=== PATIENT | male | born 1965 | race African-American/Black ===

== ENCOUNTER 2017-04-17 19:20 | Observation (INO) | payer MEDICARE ==
[~2017-04-17] VITALS: Ht 190.5 cm; Wt 95.3 kg
[2017-04-17 20:06] LABS: EOS % 1 % (0-3); HEMATOCRIT 43.7 % (39.0-53.0); HEMOGLOBIN 14.4 g/dL (13.0-17.5); LYMPH % 39 % (24-48); MEAN CORPUSCULAR HEMOGLOBIN 31 pg (25-35); MEAN CORPUSCULAR HGB CONC 33 g/dL (31-37); MEAN CORPUSCULAR VOLUME 94 fL (79-100); MONO % 8 % (0-9); NEUT % 51 % (31-73); PLATELET COUNT 236 x10^3/uL (140-400); RED BLOOD COUNT 4.66 x10^6/uL (4.30-5.70); RED CELL DISTRIBUTION WIDTH 13.4 % (11.5-14.5); WHITE BLOOD COUNT 4.6 x10^3/uL (4.0-11.0)
[2017-04-17 20:07] LABS: BASO % 1 % (0-3); LYMPH # 1.8 x10^3/uL (1.0-4.8)
[2017-04-17 20:14] LABS: BARBITURATES NEG (NEG); BENZODIAZEPINES NEG (NEG); CANNABINOIDS NEG (NEG); COCAINE NEG (NEG); METHADONE NEG (NEG); OPIATES NEG (NEG); PHENCYCLIDINE NEG (NEG)
[2017-04-17 20:16] LABS: CALCIUM 9.5 mg/dL (8.5-10.1); CREATININE 1.2 mg/dL (0.7-1.3); GFR 63.6; POTASSIUM 3.9 mmol/L (3.5-5.1)
[2017-04-17 20:20] LABS: ETHANOL < 10 mg/dL (0-10)
[2017-04-18] MEDS ORDERED: LORazepam 1 MG TABLET PO ONE
--- NOTE | 2017-04-18 01:06 | PHYS DOC ---
Past Medical History Past Medical History: Depression, Hypertension, Schizophrenia Past Surgical History: No Surgical History Additional Information: 1/2 PPD Alcohol Use: Occasionally Additional Information: 2 BEERS 4HRS AGO Drug Use: None Adult General Chief Complaint Chief Complaint: SUICDAL IDEATION HPI HPI Patient is a 52 year old male who presents with suicidal ideation. The patient states that he has history of depression & schizophrenia. He states he has been off of his depression medications and wants to kill himself. He plans to run out into heavy traffic and wants to . He states in the past he took the medication overdose and ended up intubated in the ICU. Denies any medical complaints at this time. States he is a daily drinker. He had 4 beers today. Denies drug use. Review of Systems Review of Systems Constitutional: Denies fever or chills HENT: Denies nasal congestion or sore throat Respiratory: Denies cough or shortness of breath Cardiovascular: Denies chest pain GI: Denies abdominal pain, nausea, vomiting Musculoskeletal: Denies back pain or joint pain Integument: Denies rash or skin lesions Neurologic: Denies headache, focal weakness or sensory changes Psychiatric: Reports suicidal ideation and depression Allergies Allergies Allergies Coded Allergies Type Severity Reaction Last Updated Verified Iodine and Iodide Containing Produc Allergy Intermediate 04/17/17 Yes shellfish derived Allergy Intermediate 04/17/17 Yes Physical Exam Physical Exam Constitutional: Well developed, well nourished, no acute distress, non-toxic appearance. HENT: Normocephalic, atraumatic, bilateral external ears normal, oropharynx moist, nose normal. Eyes: conjunctiva normal, no discharge. Cardiovascular: RRR, no murmurs, no edema. Lungs & Thorax: LCTAB, no wheezing, no respiratory distress. Abdomen: soft, nontender, nondistended. Skin: Warm, dry, no erythema, no rash. Back: No tenderness. Extremities: No tenderness, no edema. Neurologic: Alert and oriented X 3, no focal deficits noted. Psychologic: Flat affect Current Patient Data Vital Signs Vital Signs Date Time Temp Pulse Resp B/P (MAP) Pulse Ox O2 Delivery O2 Flow Rate FiO2 04/17/17 21:40 70 16 134/76 (95) 98 Room Air 04/17/17 19:40 98.6 98.6 Lab Values Laboratory Tests Test 04/17/17 19:35 04/17/17 19:52 White Blood Count 4.6 x10^3/uL (4.0-11.0) Red Blood Count 4.66 x10^6/uL (4.30-5.70) Hemoglobin 14.4 g/dL (13.0-17.5) Hematocrit 43.7 % (39.0-53.0) Mean Corpuscular Volume 94 fL (79-100) Mean Corpuscular Hemoglobin 31 pg (25-35) Mean Corpuscular Hemoglobin Concent 33 g/dL (31-37) Red Cell Distribution Width 13.4 % (11.5-14.5) Platelet Count 236 x10^3/uL (140-400) Neutrophils (%) (Auto) 51 % (31-73) Lymphocytes (%) (Auto) 39 % (24-48) Monocytes (%) (Auto) 8 % (0-9) Eosinophils (%) (Auto) 1 % (0-3) Basophils (%) (Auto) 1 % (0-3) Neutrophils # (Auto) 2.4 x10^3uL (1.8-7.7) Lymphocytes # (Auto) 1.8 x10^3/uL (1.0-4.8) Monocytes # (Auto) 0.4 x10^3/uL (0.0-1.1) Eosinophils # (Auto) 0.1 x10^3/uL (0.0-0.7) Basophils # (Auto) 0.0 x10^3/uL (0.0-0.2) Sodium Level 143 mmol/L (136-145) Potassium Level 3.9 mmol/L (3.5-5.1) Chloride Level 105 mmol/L (98-107) Carbon Dioxide Level 29 mmol/L (21-32) Anion Gap 9 (6-14) Blood Urea Nitrogen 12 mg/dL (8-26) Creatinine 1.2 mg/dL (0.7-1.3) Estimated GFR (Cockcroft-Gault) 63.6 Glucose Level 115 mg/dL (70-99) H Calcium Level 9.5 mg/dL (8.5-10.1) Salicylates Level < 2.8 mg/dL (2.8-20.0) L Salicylate Last Dose Date Salicylate Last Dose Time Acetaminophen Level < 2 mcg/ml (10-30) L Acetaminophen Last Dose Date Acetaminophen Last Dose Time Ethyl Alcohol Level < 10 mg/dL (0-10) Urine Opiates Screen Neg (NEG) Urine Methadone Screen Neg (NEG) Urine Barbiturates Neg (NEG) Urine Phencyclidine Screen Neg (NEG) Urine Amphetamine/Methamphetamine Neg (NEG) Urine Benzodiazepines Screen Neg (NEG) Urine Cocaine Screen Neg (NEG) Urine Cannabinoids Screen Neg (NEG) Urine Ethyl Alcohol Pos (NEG) Laboratory Tests 04/17/17 19:35 Laboratory Tests 04/17/17 19:35 EKG EKG [] Radiology/Procedures Radiology/Procedures [] Course & Med Decision Making Course & Med Decision Making Pertinent Labs and Imaging studies reviewed. (See chart for details) The patient presents with suicidal ideation. No medical complaints. No significant findings on exam. Obtained labs and consulted Sandy from the PAT team. She was unable to find placement but agrees that he requires inpatient care. We'll admit to the hospital here pending psychiatric admission. Discussed with Dr. Flores who agrees to admit to observation status. The patient is being admitted in stable condition. [] Dragon Disclaimer Dragon Disclaimer This electronic medical record was generated, in whole or in part, using a voice recognition dictation system. Departure Departure Impression: Primary Impression: Suicidal ideation Disposition: ADMITTED INPATIENT Condition: STABLE Referrals: NO PCP (PCP) EDIN ONTIVEROS MD Apr 18, 2017 01:05
[2017-04-18 07:49] VITALS: BP 144/91
[2017-04-18] MEDS: ALPRAZolam 0.5 MG TABLET PO PRN ×2 (08:34→18:37)
[2017-04-18 10:58] VITALS: BP 110/80
[2017-04-18 14:55] VITALS: BP 145/92
[2017-04-18 19:00] VITALS: BP 135/97
--- NOTE | 2017-04-18 19:31 | HP ---
ADMIT DATE: 04/18/2017 CHIEF COMPLAINT: Suicidal ideation. HISTORY OF PRESENT ILLNESS: This is a 52-year-old -[place] gentleman with depression (question bipolar) who presented to the Emergency Room stating he had ideas of committing suicide. His plan was to walk out into traffic. He apparently has had similar issues in the past and actually is on multiple psych medications, which he stopped in September when he started on a binge drink, which apparently has come to hold just now. He relates that he is drinking off and on and has been off his meds in the past as well. He is originally from [place] and came to [place] on a spur and now feels he needs to get stabilized mentally before he goes back to [place]. PAST MEDICAL HISTORY: None. FAMILY HISTORY: No psych disorders known. SOCIAL HISTORY: States he is living with his girlfriend of 20 years in [place], no home here, has been drinking heavily, but had only two beers yesterday. Denies any illicit drug use. Smokes about half a pack. ALLERGIES: IODINE, SHELLFISH, AND FISH. HOME MEDICATIONS: Reconciled with [facility]. REVIEW OF SYSTEMS: Physically, he is doing well. Denies any problems. Psychiatrically endorses suicidal ideation with plan. PHYSICAL EXAMINATION: VITAL SIGNS: From today show a blood pressure of 110/80, heart rate of 59, respiratory rate at 18. He is afebrile. GENERAL: This is a 52-year-old -[place] gentleman, a well-nourished, well-developed in no acute distress. HEENT: Shows no scleral icterus. NECK: Supple. LUNGS: Clear. HEART: Has regular rate and rhythm. ABDOMEN: Has positive bowel sounds, soft, nontender. EXTREMITIES: Show no edema. SKIN: Warm, soft and dry without any rash. LABORATORY DATA: CBC with a WBC of 4.6, hemoglobin 14.4, platelets of 236. BUN and creatinine of 12 and 1.2. Normal electrolytes. Toxicology positive only for blood alcohol less than 10. ASSESSMENT AND PLAN: The patient is a 52-year-old gentleman with suspected bipolar disorder, presented to the hospital voicing suicidal ideation. He answers all the questions as if has heard them many times before. He does have a flat affect, speaking to him. A PET team has seen him and recommended inpatient psych. Unfortunately, we will be unable to place him without insurance and out of state. He will therefore remain here until he is stable enough to go back to [place]. We will restart his medications including Seroquel at night, Klonopin 3 times a day as well as Zoloft, which will start at a quarter dose of his typical 100 mg and titrate upwards. For prophylaxis, he will be placed on Lovenox. Further labs are not indicated at this time. He will remain with 1:1 sitter for suicide precaution. RADHA DICKSON MD DR: UR/nts JOB#: [id number] / [id number] MEKA
[2017-04-18] MEDS: clonazePAM 0.5 MG TABLET PO SCH (21:07)
[2017-04-18] MEDS: QUEtiapine 300 MG TAB.ER.24H. PO SCH (21:07)
[2017-04-18] MEDS: ENOXAPARIN 40 MG/0.4 ML SYRINGE. SQ SCH (21:08)
[2017-04-18 22:45] VITALS: BP 141/94
[2017-04-19 02:37] VITALS: BP 137/89
[2017-04-19 07:00] VITALS: BP 133/87
--- NOTE | 2017-04-19 08:59 | PDOC ---
PROGRESS NOTES Chief Complaint Chief Complaint suicidal ideation, hearing voices bipolar disorder, w/ psychosis, was off meds w. depression possible homeless History of Present Illness History of Present Illness feels "yucky" restarting his meds good appetite, spirits seem better today, Vitals Vitals Vital Signs Date Time Temp Pulse Resp B/P (MAP) Pulse Ox O2 Delivery O2 Flow Rate FiO2 04/19/17 07:00 96.9 66 20 133/87 (102) Room Air 96.9 04/19/17 02:37 98 Physical Exam General: Alert, Cooperative, No acute distress Heart: No murmurs, Gallops Lungs: Crackles Abdomen: No hepatosplenomegaly Extremities: No edema Skin: No significant lesion Review of Systems Review of Systems lethargy, some nausea less voices, does not mention this affect seems brighter Assessment and Plan Assessmemt and Plan Problems Medical Problems: (1) Suicidal ideation Status: Acute Problems: Comment Review of Relevant I have reviewed the following items jordin (where applicable) has been applied. Labs Laboratory Tests Test 04/17/17 19:35 04/17/17 19:52 White Blood Count 4.6 x10^3/uL (4.0-11.0) Red Blood Count 4.66 x10^6/uL (4.30-5.70) Hemoglobin 14.4 g/dL (13.0-17.5) Hematocrit 43.7 % (39.0-53.0) Mean Corpuscular Volume 94 fL (79-100) Mean Corpuscular Hemoglobin 31 pg (25-35) Mean Corpuscular Hemoglobin Concent 33 g/dL (31-37) Red Cell Distribution Width 13.4 % (11.5-14.5) Platelet Count 236 x10^3/uL (140-400) Neutrophils (%) (Auto) 51 % (31-73) Lymphocytes (%) (Auto) 39 % (24-48) Monocytes (%) (Auto) 8 % (0-9) Eosinophils (%) (Auto) 1 % (0-3) Basophils (%) (Auto) 1 % (0-3) Neutrophils # (Auto) 2.4 x10^3uL (1.8-7.7) Lymphocytes # (Auto) 1.8 x10^3/uL (1.0-4.8) Monocytes # (Auto) 0.4 x10^3/uL (0.0-1.1) Eosinophils # (Auto) 0.1 x10^3/uL (0.0-0.7) Basophils # (Auto) 0.0 x10^3/uL (0.0-0.2) Sodium Level 143 mmol/L (136-145) Potassium Level 3.9 mmol/L (3.5-5.1) Chloride Level 105 mmol/L (98-107) Carbon Dioxide Level 29 mmol/L (21-32) Anion Gap 9 (6-14) Blood Urea Nitrogen 12 mg/dL (8-26) Creatinine 1.2 mg/dL (0.7-1.3) Estimated GFR (Cockcroft-Gault) 63.6 Glucose Level 115 mg/dL (70-99) Calcium Level 9.5 mg/dL (8.5-10.1) Salicylates Level < 2.8 mg/dL (2.8-20.0) Salicylate Last Dose Date Salicylate Last Dose Time Acetaminophen Level < 2 mcg/ml (10-30) Acetaminophen Last Dose Date Acetaminophen Last Dose Time Ethyl Alcohol Level < 10 mg/dL (0-10) Urine Opiates Screen Neg (NEG) Urine Methadone Screen Neg (NEG) Urine Barbiturates Neg (NEG) Urine Phencyclidine Screen Neg (NEG) Urine Amphetamine/Methamphetamine Neg (NEG) Urine Benzodiazepines Screen Neg (NEG) Urine Cocaine Screen Neg (NEG) Urine Cannabinoids Screen Neg (NEG) Urine Ethyl Alcohol Pos (NEG) Medications Current Medications Lorazepam (Ativan) 1 mg 1X ONCE PO Last administered on 04/18/17 00:00; Start 04/18/17 at 00:00; Stop 04/18/17 at 00:01; Status DC Alprazolam (Xanax) 0.5 mg PRN Q8HRS PRN PO ANXIETY / AGITATION Last administered on 04/18/17 18:37; Start 04/18/17 at 07:15 Quetiapine Fumarate (SEROquel XR) 300 mg QHS PO Last administered on 04/18/17 21:07; Start 04/18/17 at 21:00 Clonazepam (KlonoPIN) 0.5 mg TID PO Last administered on 04/18/17 21:07; Start 04/18/17 at 21:00 Sertraline HCl (Zoloft) 25 mg DAILY PO ; Start 04/19/17 at 09:00 Enoxaparin Sodium (Lovenox 40mg Syringe) 40 mg Q24H SQ Last administered on t 21:08; Start 04/18/17 at 21:00 Vitals/I & O Vital Sign - Last 24 Hours 04/18/17 04/18/17 04/18/17 04/18/17 10:58 14:55 19:00 19:56 Temp 98.0 98.1 98.4 98.0 98.1 98.4 Pulse 59 71 67 Resp 18 18 18 B/P (MAP) 110/80 (90) 145/92 (109) 135/97 (110) Pulse Ox 94 94 96 O2 Delivery Room Air Room Air Room Air Room Air 04/18/17 04/19/17 04/19/17 22:45 02:37 07:00 Temp 96.6 97.6 96.9 96.6 97.6 96.9 Pulse 60 81 66 Resp 20 20 20 B/P (MAP) 141/94 (110) 137/89 (105) 133/87 (102) Pulse Ox 98 98 O2 Delivery Room Air Room Air Room Air Intake and Output 04/18/17 04/18/17 04/19/17 15:00 23:00 07:00 Intake Total 750 ml 350 ml 460 ml Output Total 500 ml 450 ml 0 ml Balance 250 ml -100 ml 460 ml HETAL DIAZ MD Apr 19, 2017 08:59
[2017-04-19] MEDS: SERTRALINE 25 MG TABLET. PO SCH (09:39)
[2017-04-19] MEDS: clonazePAM 0.5 MG TABLET PO SCH ×3 (09:39→21:05)
[2017-04-19 11:00] VITALS: BP 133/74
[2017-04-19 15:00] VITALS: BP 123/91
[2017-04-19 19:00] VITALS: BP 123/88
[2017-04-19] MEDS: ENOXAPARIN 40 MG/0.4 ML SYRINGE. SQ SCH (21:00)
[2017-04-19] MEDS: QUEtiapine 300 MG TAB.ER.24H. PO SCH (21:05)
[2017-04-19 23:00] VITALS: BP 135/85
[2017-04-20 03:00] VITALS: BP 114/85
[2017-04-20 07:00] VITALS: BP 134/97
[2017-04-20] MEDS: clonazePAM 0.5 MG TABLET PO SCH ×3 (08:15→20:25)
[2017-04-20] MEDS: SERTRALINE 25 MG TABLET. PO SCH ×2 (08:15→20:24)
[2017-04-20] MEDS ORDERED: ALPR0.5T6 PO (10:12)
[2017-04-20] MEDS ORDERED: SERT25TA4 PO (10:12)
[2017-04-20] MEDS ORDERED: QUET300T6 PO (10:12)
[2017-04-20 11:00] VITALS: BP 111/78
[2017-04-20 15:00] VITALS: BP 120/75
[2017-04-20 19:00] VITALS: BP 137/89
[2017-04-20] MEDS: ENOXAPARIN 40 MG/0.4 ML SYRINGE. SQ SCH (20:24)
[2017-04-20] MEDS: QUEtiapine 300 MG TAB.ER.24H. PO SCH (20:24)
[2017-04-20] MEDS: ALPRAZolam 0.5 MG TABLET PO PRN (23:57)
[2017-04-21] MEDS: clonazePAM 0.5 MG TABLET PO SCH (08:31)
[2017-04-21] MEDS ORDERED: CLON0.5T3 PO (10:35)
--- NOTE | 2017-04-21 11:00 | PDOC ---
PROGRESS NOTES Chief Complaint Chief Complaint Late Entry, tried to DC on 04/20, he felt unable suicidal ideation, hearing voices bipolar disorder, w/ psychosis, was off meds w. depression possible homeless History of Present Illness History of Present Illness noted lethargy and weaknesss w./ nausea today moderate appetite, spirits seem better today, Vitals Vitals Vital Signs Date Time Temp Pulse Resp B/P (MAP) Pulse Ox O2 Delivery O2 Flow Rate FiO2 04/21/17 08:00 Room Air 04/20/17 19:00 98.9 85 18 137/89 (105) 96 98.9 Physical Exam General: Alert, Cooperative, No acute distress Heart: Regular rate, No murmurs, Gallops Lungs: Crackles Abdomen: Normal bowel sounds, No hepatosplenomegaly Extremities: No clubbing, No edema Skin: No rashes, No significant lesion Assessment and Plan Assessmemt and Plan Problems Medical Problems: (1) Suicidal ideation Status: Acute Problems: Comment Review of Relevant I have reviewed the following items jordin (where applicable) has been applied. Medications Current Medications Lorazepam (Ativan) 1 mg 1X ONCE PO Last administered on 04/18/17 00:00; Start 04/18/17 at 00:00; Stop 04/18/17 at 00:01; Status DC Alprazolam (Xanax) 0.5 mg PRN Q8HRS PRN PO ANXIETY / AGITATION Last administered on 04/20/17 23:57; Start 04/18/17 at 07:15 Quetiapine Fumarate (SEROquel XR) 300 mg QHS PO Last administered on 04/20/17 20:24; Start 04/18/17 at 21:00 Clonazepam (KlonoPIN) 0.5 mg TID PO Last administered on 04/21/17 08:31; Start 04/18/17 at 21:00 Sertraline HCl (Zoloft) 25 mg DAILY PO Last administered on 04/20/17 20:24; Start 04/19/17 at 09:00 Enoxaparin Sodium (Lovenox 40mg Syringe) 40 mg Q24H SQ Last administered on 21:08; Start 04/18/17 at 21:00 Active Scripts Active Clonazepam 0.5 Mg Tablet 0.5 Mg PO BID Alprazolam 0.5 Mg Tablet 0.5 Mg PO PRN Q8HRS PRN Sertraline Hcl 25 Mg Tablet 25 Mg PO DAILY Seroquel Xr (Quetiapine Fumarate) 300 Mg Tab.er.24h 300 Mg PO QHS Vitals/I & O Vital Sign - Last 24 Hours 04/20/17 04/20/17 04/20/17 04/20/17 11:00 15:00 19:00 19:34 Temp 98.2 97.7 98.9 98.2 97.7 98.9 Pulse 81 83 85 Resp 16 18 18 B/P (MAP) 111/78 (89) 120/75 (90) 137/89 (105) Pulse Ox 98 97 96 O2 Delivery Room Air Room Air Room Air Room Air 04/21/17 08:00 O2 Delivery Room Air Intake and Output 04/20/17 04/20/17 04/21/17 15:00 23:00 07:00 Intake Total 1200 ml 950 ml 480 ml Balance 1200 ml 950 ml 480 ml HETAL DIAZ MD Apr 21, 2017 10:59
--- NOTE | 2017-04-21 11:02 | PDOC3 ---
Discharge Summary Visit Information Date of Admission: Apr 17, 2017 Date of Discharge: Apr 21, 2017 Admitting Diagnosis: suicidal Final Diagnosis suicidal ideation, hearing voices bipolar disorder, w/ psychosis, was off meds w. depression anxiety d/o noncompliance meds Problems Medical Problems: (1) Suicidal ideation Status: Acute Brief Hospital Course Allergies Allergies Coded Allergies Type Severity Reaction Last Updated Verified Fish Containing Products Allergy Intermediate 04/17/17 Yes Iodine and Iodide Containing Produc Allergy Intermediate 04/17/17 Yes shellfish derived Allergy Intermediate 04/17/17 Yes Vital Signs Vital Signs Date Time Temp Pulse Resp B/P (MAP) Pulse Ox O2 Delivery O2 Flow Rate FiO2 04/21/17 08:00 Room Air 04/20/17 19:00 98.9 85 18 137/89 (105) 96 98.9 Brief Hospital Course Mr. Gonzalez is a 52 old male, admit suicidal, 1:1 obs for 3 days, could not place, insurance was out of state, Psych team, re-eval at 3 days, no longer suicidal, but marked side effects from starting meds felt well 04/21 DC, he is travelling home to [place] Discharge Information Condition at Discharge: Improved Follow Up: Weeks Disposition/Orders: D/C to Home Scheduled Clonazepam (Clonazepam), 0.5 MG PO BID Quetiapine Fumarate (Seroquel Xr), 300 MG PO QHS Sertraline Hcl (Sertraline Hcl), 25 MG PO DAILY Scheduled PRN Alprazolam (Alprazolam), 0.5 MG PO PRN Q8HRS PRN for ANXIETY / AGITATION Patient Instructions Patient Instructions above meds restarted, 1 mo script given to transition home time > 30 min HETAL DIAZ MD Apr 21, 2017 11:02
== END 2017-04-21 11:23 | disposition home or self-care (01) ==
LOC: ER 19:20 → EEVIPCON 19:20 → ED HOLD 22:18 → 5 NORTH 04-18 07:34
PROVIDERS: ADMIT Internal Medicine Hematology & Oncology; ATTEND Internal Medicine Hematology & Oncology
DX: R45.851 Suicidal ideations (principal); F31.9 Bipolar disorder, unspecified; F41.9 Anxiety disorder, unspecified; F20.9 Schizophrenia, unspecified; I10 Essential (primary) hypertension; F17.210 Nicotine dependence, cigarettes, uncomplicated; Z91.19 Patient's noncompliance with other medical treatment and regimen
CPT/HCPCS: 36415; 80048; 80329; 85027; 96372; 99285; G0378; G0480; G0481; G0379; J1650